=== PATIENT | female | born 1960 | race Caucasian/White ===

== ENCOUNTER → 2020-02-18 | Day surgery (SDC) | payer BC ==
[~2020-02-18] MED LIST: Glycopyrrolate 0.2 MG/ML SDV ONE; Ketamine 200 MG/20 ML MDV ONE; Lactated Ringers 1,000 ML IV SCH; Lidocaine 2% 5 ML SDV ONE; Propofol 200 MG/20 ML SDV ONE; fentaNYL 100 MCG/2 ML SDV ONE
--- NOTE | 2020-02-18 13:46 | OR ---
DATE OF OPERATION: 02/18/2020 PREOPERATIVE DIAGNOSIS: POSITIVE COLOGUARD TEST. POSTOPERATIVE DIAGNOSIS: POSITIVE COLOGUARD TEST. SURGEON: Clark Kolb MD PROCEDURE: TOTAL COLONOSCOPY. ANESTHESIA: Monitored care anesthesia. SPECIMEN: None. FINDINGS: Normal colonoscopy. RECOMMENDATIONS: Followup colonoscopy for screening in 10 years. INDICATIONS: This 59-year-old female has never had a prior colonoscopy and on her routine physical examination, Cologuard test was positive. DESCRIPTION OF PROCEDURE: After adequate preparation, a colonoscope was inserted into the rectum and the scope advanced all the way to the cecum without any difficulty. The bowel prep was excellent. On withdrawal of the scope, no abnormalities were noted. There was no evidence of polyps, diverticulosis, colitis, AV malformations, or other problems. Certainly nothing would explain a positive Cologuard test. Air was suctioned from the colon and the scope removed. BPB/MODL /[id number]
== END ==
LOC: CC.SDS 07:59
PROVIDERS: ATTEND Surgery
DX: R19.5 Other fecal abnormalities (principal); Z01.812 Encounter for preprocedural laboratory examination; Z20.822 Contact with and (suspected) exposure to COVID-19; Z91.030 Bee allergy status
CPT/HCPCS: J2001; J2704; J3010; J3490; J7120